=== PATIENT | female | born 1980 | race Caucasian/White ===

== ENCOUNTER → 2016-03-10 | Outpatient (CLI) | payer OTHER ==
--- NOTE | 2016-03-10 17:08 | DX ---
PA and lateral chest History: Chest pain, shortness of breath. Comparison: PA and lateral chest January 12, 2012. Findings: The lungs are hyperexpanded but clear. There is no pneumothorax or pleural effusion. The heart and pulmonary vasculature are normal. The bones are normal. Impression: Hyperexpanded lungs, which could be related to air trapping or deep inspiratory effort.
== END ==
LOC: FIMAGING 14:54
PROVIDERS: ATTEND Family Medicine
DX: J98.4 Other disorders of lung (principal)

== ENCOUNTER 2016-05-20 14:44 | Emergency (ER) | payer OTHER ==
[2016-05-20 14:53] VITALS: BP 137/86; PULSE 86; RESP 18; O2SAT 98
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
[2016-05-20] MEDS ORDERED: ONDANSETRON DISINTEGRATING 4 MG TAB PO ONE (16:54)
[2016-05-20] MEDS ORDERED: ULIPRISTAL ACETATE 30 MG TAB PO ONE (16:54)
[2016-05-20] MEDS ORDERED: CEFTRIAXONE IM 350 MG/ML SYRINGE IM ONE (16:54)
[2016-05-20] MEDS ORDERED: AZITHROMYCIN 250 MG TAB PO ONE (16:54)
== END 2016-05-20 20:25 | disposition home or self-care (01) ==
LOC: EEVIPCON 14:44
DX: T74.21XA Adult sexual abuse, confirmed, initial encounter (principal); Z87.891 Personal history of nicotine dependence
CPT/HCPCS: J0696

== ENCOUNTER → 2018-03-16 | Outpatient (CLI) | payer OTHER | LOC: FIMAGING 15:06 | PROVIDERS: ATTEND Family Medicine | DX: Z12.31 Encounter for screening mammogram for malignant neoplasm of breast (principal); Z80.3 Family history of malignant neoplasm of breast ==